=== PATIENT | male | born 1990 ===

== ENCOUNTER 2018-04-16 14:10 | Outpatient (REF) | payer SELFPAY ==
[2018-04-18 11:38] LABS: HIV-1/2 Ag & Ab Screen Negative (NEGAT)
[2018-04-18 13:55] LABS: Syphilis Serology (RPR) Negative (Negative)
[2018-04-18 18:02] LABS: Chlamydia Result Negative; GC Result Negative; Specimen Description URINE
[2018-04-19 00:21] LABS: C.trach, Misc, Amplified RNA Negative (Negative); N.gonorr, Misc, Amplified RNA Negative (Negative); SOURCE: THROAT
== END 2018-04-16 14:30 ==
LOC: NCHCN 14:10
PROVIDERS: PCP Physician Assistant Medical; Visit Provider Physician Assistant Medical
DX: J02.9 Acute pharyngitis, unspecified (principal); Z11.4 Encounter for screening for human immunodeficiency virus [HIV]; Z11.3 Encounter for screening for infections with a predominantly sexual mode of transmission
CPT/HCPCS: 87389; 87491; 87591; 86592